=== PATIENT | female | born 1970 | race Caucasian/White ===

== ENCOUNTER 2023-05-22 20:19 | Inpatient (IN) | payer MEDICAID, OTHER ==
[~2023-05-22] VITALS: Ht 157.5 cm; Wt 95.9 kg
[2023-05-22] MEDS ORDERED: methylPREDNISolone sod succ 125mg/2ml vial IV ONE (20:50)
[2023-05-22] MEDS ORDERED: ipratropium/albuterol 3ml nebule NEB ONE (20:50)
[2023-05-22 21:23] LABS: BASOPHILS % (AUTO) 0.4 % (0-1); EOSINOPHILS % (AUTO) 0.5 % (0-6); HEMATOCRIT 43.5 % (35.0-45.0); HEMOGLOBIN 14.4 g/dl (12.0-16.0); LYMPHOCYTES # (AUTO) 1.6 X10'3 (1.1-4.8); LYMPHOCYTES % (AUTO) 22.5 % (21-51); MEAN CORPUSCULAR HEMOGLOBIN 28.6 PG (27.0-31.0); MEAN CORPUSCULAR VOLUME 86.5 FL (78-98); MEAN PLATELET VOLUME 8.7 FL (7.4-10.4); MONOCYTES % (AUTO) 14.2 % (2-12); NEUTROPHILS # (AUTO) 4.4 X10'3 (1.8-7.7); NEUTROPHILS % (AUTO) 62.4 % (42-75); PLATELET COUNT 227 X10'3 (140-440); RED BLOOD COUNT 5.03 X10'6 (4.20-5.60); RED CELL DISTRIBUTION WIDTH 13.7 % (11.5-14.5)
[2023-05-22 21:34] LABS: ALANINE AMINOTRANSFERASE 72 U/L (12-78); ALBUMIN 3.3 G/DL (3.4-5.0); ALBUMIN/GLOBULIN RATIO 0.7 (1.1-1.5); ALKALINE PHOSPHATASE 112 IU/L (46-116); ANION GAP 5 (8-16); ASPARTATE AMINO TRANSFERASE 42 U/L (10-37); BILIRUBIN,TOTAL 0.3 MG/DL (0.1-1.0); BLOOD UREA NITROGEN 10 MG/DL (7-18); BUN/CREATININE RATIO 10.2 (10.0-20.0); CALCIUM 9.2 MG/DL (8.5-10.1); CHLORIDE 101 MMOL/L (99-107); CREATININE 0.98 MG/DL (0.40-0.90); GLUCOSE 163 MG/DL (70-104); SODIUM 139 MMOL/L (135-145); TOTAL CARBON DIOXIDE 32.6 MMOL/L (24-32); TOTAL PROTEIN 7.9 G/DL (6.4-8.2); eCRCL 52 ML/MIN; eGFR 59 ML/MIN
[2023-05-22 21:41] LABS: PRO BRAIN NATRIURETIC PEPTIDE 132 PG/ML (0-125)
[2023-05-22 21:58] VITALS: PULSE 88; RESP 20; O2SAT 98
[2023-05-22 22:02] VITALS: PULSE 93; RESP 20; O2SAT 100
[2023-05-22] MEDS ORDERED: aspirin 325mg tablet PO ONE (22:15)
[2023-05-22 22:28] LABS: LIPASE 38 U/L (16-77)
[2023-05-22] MEDS ORDERED: iohexol 350MG/ML 100ml bottle IV ONE (22:38)
[2023-05-23] VITALS (8 sets, daily range): BP systolic 126–127; BP diastolic 64–83; PULSE 53–100; RESP 15–22; TEMP 98.5–99.4; O2SAT 92–98
[2023-05-23] MEDS ORDERED: CefTRIAXone 2gm/D5W 50ml BAG 50 ML IV ONE (01:20)
[2023-05-23] MEDS ORDERED: magnesium hydroxide 30ml (MOM) UD suspension PO PRN (02:30)
[2023-05-23] MEDS ORDERED: potassium Cl 40MEQ/1/2NS 520ml 520 ML IV PRN ×2 (02:30→08:25)
[2023-05-23] MEDS ORDERED: ondansetron/PF 4mg/2ml inj IV PRN (02:30)
[2023-05-23] MEDS ORDERED: magnesium 4gm in 100ml NS 100 ML IV PRN ×2 (02:30→08:25)
[2023-05-23] MEDS ORDERED: potassium Cl 20 mEq SR tablet PO PRN ×2 (02:30)
[2023-05-23] MEDS ORDERED: PERFLUTREN PROTEIN-A MICROSPHR (Optison) 0.22 MG/ML 3ML VIAL IV ONE (02:30)
[2023-05-23] MEDS ORDERED: acetaminophen 325mg tablet PO PRN (02:30)
[2023-05-23] MEDS ORDERED: magnesium 2GM in 50ml NS 50 ML IV PRN ×2 (02:30→08:25)
[2023-05-23] MEDS ORDERED: magnesium Cl slow-release 64mg tablet PO PRN (02:30)
[2023-05-23] MEDS ORDERED: mag hydrox/Alum hydrox/simeth 30ml oral suspension PO PRN (02:30)
[2023-05-23] MEDS ORDERED: methylPREDNISolone sod succ 125mg/2ml vial IV SCH (08:00)
[2023-05-23] MEDS ORDERED: K and/or MAG REPLACEMENT MC SCH (08:00)
[2023-05-23 08:22] LABS: MAGNESIUM 2.3 MG/DL (1.5-2.4)
[2023-05-23] MEDS: docusate sod 100mg capsule PO SCH ×2 (08:52→20:06)
[2023-05-23] MEDS: aspirin 81mg, enteric-coated 1 TAB TABLET.DR PO SCH (08:52)
[2023-05-23] MEDS: heparin, porcine 5000 units/ml vial SQ SCH ×2 (08:56→20:06)
[2023-05-23 10:22] LABS: ALANINE AMINOTRANSFERASE 77 U/L (12-78); ALBUMIN 3.4 G/DL (3.4-5.0); ALBUMIN/GLOBULIN RATIO 0.7 (1.1-1.5); ALKALINE PHOSPHATASE 121 IU/L (46-116); ANION GAP 14 (8-16); ASPARTATE AMINO TRANSFERASE 35 U/L (10-37); BILIRUBIN,TOTAL 0.2 MG/DL (0.1-1.0); BLOOD UREA NITROGEN 13 MG/DL (7-18); BUN/CREATININE RATIO 15.9 (10.0-20.0); CALCIUM 9.3 MG/DL (8.5-10.1); CHLORIDE 101 MMOL/L (99-107); CREATININE 0.82 MG/DL (0.40-0.90); GLUCOSE 219 MG/DL (70-104); POTASSIUM 4.6 MMOL/L (3.5-5.1); SODIUM 138 MMOL/L (135-145); TOTAL CARBON DIOXIDE 22.7 MMOL/L (24-32); TOTAL PROTEIN 8.5 G/DL (6.4-8.2); eCRCL 62 ML/MIN; eGFR 73 ML/MIN
[2023-05-23 10:48] LABS: BASOPHILS % (AUTO) 0.2 % (0-1); EOSINOPHILS % (AUTO) 0 % (0-6); HEMATOCRIT 44.3 % (35.0-45.0); HEMOGLOBIN 14.7 g/dl (12.0-16.0); LYMPHOCYTES % (AUTO) 14.2 % (21-51); MEAN CORPUSCULAR HEMOGLOBIN 28.6 PG (27.0-31.0); MEAN CORPUSCULAR HGB CONC 33.1 g/dL (33.0-36.5); MEAN CORPUSCULAR VOLUME 86.4 FL (78-98); MEAN PLATELET VOLUME 9.4 FL (7.4-10.4); MONOCYTES # (AUTO) 0.4 X10'3 (0-0.9); MONOCYTES % (AUTO) 4.9 % (2-12); NEUTROPHILS # (AUTO) 5.7 X10'3 (1.8-7.7); NEUTROPHILS % (AUTO) 80.7 % (42-75); PLATELET COUNT 259 X10'3 (140-440); RED BLOOD COUNT 5.13 X10'6 (4.20-5.60); RED CELL DISTRIBUTION WIDTH 13.9 % (11.5-14.5); WHITE BLOOD COUNT 7.1 X10'3 (4.5-11.0)
[2023-05-23] MEDS: K and/or MAG REPLACEMENT MC SCH (20:00)
[2023-05-23] MEDS: methylPREDNISolone sod succ 125mg/2ml vial IV SCH (20:06)
[2023-05-24] VITALS (12 sets, daily range): BP systolic 133–152; BP diastolic 77–91; PULSE 69–93; RESP 15–22; TEMP 97.8–98.5; O2SAT 92–98
[2023-05-24] MEDS: albuterol 2.5 MG/3 ML nebule NEB PRN ×2 (02:56→09:28)
[2023-05-24 05:58] LABS: BASOPHILS % (AUTO) 0.1 % (0-1); EOSINOPHILS % (AUTO) 0 % (0-6); HEMATOCRIT 41.9 % (35.0-45.0); LYMPHOCYTES # (AUTO) 2.3 X10'3 (1.1-4.8); LYMPHOCYTES % (AUTO) 22.3 % (21-51); MEAN CORPUSCULAR HEMOGLOBIN 28.9 PG (27.0-31.0); MEAN CORPUSCULAR HGB CONC 33.3 g/dL (33.0-36.5); MEAN CORPUSCULAR VOLUME 86.6 FL (78-98); MEAN PLATELET VOLUME 8.7 FL (7.4-10.4); MONOCYTES # (AUTO) 0.9 X10'3 (0-0.9); MONOCYTES % (AUTO) 8.8 % (2-12); NEUTROPHILS # (AUTO) 7.2 X10'3 (1.8-7.7); NEUTROPHILS % (AUTO) 68.8 % (42-75); PLATELET COUNT 268 X10'3 (140-440); RED BLOOD COUNT 4.84 X10'6 (4.20-5.60); RED CELL DISTRIBUTION WIDTH 13.8 % (11.5-14.5); WHITE BLOOD COUNT 10.4 X10'3 (4.5-11.0)
[2023-05-24 06:17] LABS: ALANINE AMINOTRANSFERASE 93 U/L (12-78); ALBUMIN 3.2 G/DL (3.4-5.0); ALBUMIN/GLOBULIN RATIO 0.7 (1.1-1.5); ALKALINE PHOSPHATASE 109 IU/L (46-116); ANION GAP 8 (8-16); ASPARTATE AMINO TRANSFERASE 40 U/L (10-37); BILIRUBIN,TOTAL 0.3 MG/DL (0.1-1.0); BLOOD UREA NITROGEN 26 MG/DL (7-18); BUN/CREATININE RATIO 33.3 (10.0-20.0); CALCIUM 9.7 MG/DL (8.5-10.1); CHLORIDE 101 MMOL/L (99-107); CREATININE 0.78 MG/DL (0.40-0.90); GLUCOSE 189 MG/DL (70-104); MAGNESIUM 2.4 MG/DL (1.5-2.4); POTASSIUM 4.8 MMOL/L (3.5-5.1); SODIUM 139 MMOL/L (135-145); TOTAL CARBON DIOXIDE 30.1 MMOL/L (24-32); eCRCL 65 ML/MIN; eGFR 77 ML/MIN
[2023-05-24 06:29] LABS: HEMOGLOBIN A1C 6.6 % (4.5-6.2)
[2023-05-24] MEDS: aspirin 81mg, enteric-coated 1 TAB TABLET.DR PO SCH (07:51)
[2023-05-24] MEDS: CefTRIAXone/D5W-Rocephin 1gm 50 ML IV SCH (07:51)
[2023-05-24] MEDS: docusate sod 100mg capsule PO SCH ×2 (07:51→19:26)
[2023-05-24] MEDS: heparin, porcine 5000 units/ml vial SQ SCH ×2 (07:51→19:26)
[2023-05-24] MEDS: methylPREDNISolone sod succ 125mg/2ml vial IV SCH (07:52)
[2023-05-24] MEDS: K and/or MAG REPLACEMENT MC SCH ×2 (08:00→19:15)
[2023-05-24] MEDS ORDERED: DEXTROSE 15 GM of carb/4 tabs (each vial/BOTTLE has 4 tablets) PO PRN ×2 (08:05)
[2023-05-24] MEDS ORDERED: glucagon, human recombinant 1mg kit SUBCUT PRN (08:05)
[2023-05-24] MEDS ORDERED: dextrose 50%-water 50ml dispensing syringe IV PRN ×2 (08:05)
[2023-05-24] MEDS ORDERED: MESSAGE TO PHARMACY PO ONE (08:05)
[2023-05-24] MEDS ORDERED: benzonatate 100mg capsule PO PRN (08:45)
[2023-05-24] MEDS: benzonatate 100mg capsule PO SCH ×2 (09:44→16:56)
[2023-05-24] MEDS: methylPREDNISolone sod succ/PF 40mg inj. IV SCH ×2 (14:50→22:14)
[2023-05-24] MEDS: insulin Lispro (HumaLOG) vial - multi-dose SQ SCH ×2 (19:31→22:13)
[2023-05-24] MEDS: insulin glargine (Lantus) pen - multi-dose SQ SCH (22:10)
[2023-05-25] VITALS (10 sets, daily range): BP systolic 133–151; BP diastolic 72–85; PULSE 71–85; RESP 16–22; TEMP 97.4–98.4; O2SAT 92–96
[2023-05-25] MEDS: benzonatate 100mg capsule PO SCH ×4 (00:16→23:03)
[2023-05-25] MEDS: CefTRIAXone/D5W-Rocephin 1gm 50 ML IV SCH (07:38)
[2023-05-25] MEDS: aspirin 81mg, enteric-coated 1 TAB TABLET.DR PO SCH (07:39)
[2023-05-25] MEDS: methylPREDNISolone sod succ/PF 40mg inj. IV SCH ×3 (07:39→21:52)
[2023-05-25] MEDS: docusate sod 100mg capsule PO SCH ×2 (07:39→19:44)
[2023-05-25] MEDS: heparin, porcine 5000 units/ml vial SQ SCH ×2 (07:40→19:44)
[2023-05-25] MEDS: K and/or MAG REPLACEMENT MC SCH ×2 (08:00→19:20)
[2023-05-25 08:10] LABS: BASOPHILS % (AUTO) 0.2 % (0-1); EOSINOPHILS % (AUTO) 0 % (0-6); HEMATOCRIT 44.4 % (35.0-45.0); HEMOGLOBIN 14.3 g/dl (12.0-16.0); LYMPHOCYTES # (AUTO) 2.6 X10'3 (1.1-4.8); LYMPHOCYTES % (AUTO) 23.4 % (21-51); MEAN CORPUSCULAR HEMOGLOBIN 28.1 PG (27.0-31.0); MEAN CORPUSCULAR HGB CONC 32.2 g/dL (33.0-36.5); MEAN CORPUSCULAR VOLUME 87.3 FL (78-98); MEAN PLATELET VOLUME 8.8 FL (7.4-10.4); MONOCYTES # (AUTO) 0.9 X10'3 (0-0.9); MONOCYTES % (AUTO) 7.9 % (2-12); NEUTROPHILS # (AUTO) 7.5 X10'3 (1.8-7.7); NEUTROPHILS % (AUTO) 68.5 % (42-75); PLATELET COUNT 273 X10'3 (140-440); RED BLOOD COUNT 5.08 X10'6 (4.20-5.60); RED CELL DISTRIBUTION WIDTH 13.8 % (11.5-14.5)
[2023-05-25 08:21] LABS: ALANINE AMINOTRANSFERASE 84 U/L (12-78); ALBUMIN 3.2 G/DL (3.4-5.0); ALBUMIN/GLOBULIN RATIO 0.6 (1.1-1.5); ALKALINE PHOSPHATASE 101 IU/L (46-116); ANION GAP 7 (8-16); ASPARTATE AMINO TRANSFERASE 32 U/L (10-37); BILIRUBIN,TOTAL 0.2 MG/DL (0.1-1.0); BLOOD UREA NITROGEN 30 MG/DL (7-18); BUN/CREATININE RATIO 34.9 (10.0-20.0); CALCIUM 9.9 MG/DL (8.5-10.1); CHLORIDE 100 MMOL/L (99-107); CREATININE 0.86 MG/DL (0.40-0.90); GLUCOSE 172 MG/DL (70-104); MAGNESIUM 2.7 MG/DL (1.5-2.4); POTASSIUM 4.6 MMOL/L (3.5-5.1); SODIUM 138 MMOL/L (135-145); TOTAL PROTEIN 8.2 G/DL (6.4-8.2); eCRCL 59 ML/MIN; eGFR 69 ML/MIN
[2023-05-25] MEDS: insulin Lispro (HumaLOG) vial - multi-dose SQ SCH ×3 (09:25→19:47)
[2023-05-25] MEDS ORDERED: FLU VACC QS2023-24(6MOS UP)/PF 60 MCG/0.5 ML SYRINGE IM ONE (09:55)
[2023-05-25] MEDS: albuterol 2.5 MG/3 ML nebule NEB PRN (11:37)
[2023-05-25] MEDS: insulin glargine (Lantus) pen - multi-dose SQ SCH (22:00)
[2023-05-26 06:00] VITALS: BP 133/67; PULSE 87; RESP 22; TEMP 97.7; O2SAT 93
[2023-05-26 06:59] VITALS: BP 133/67; PULSE 87; RESP 22; TEMP 97.7; O2SAT 93
[2023-05-26 07:19] LABS: BASOPHILS # (AUTO) 0.1 X10'3 (0-0.2); BASOPHILS % (AUTO) 0.5 % (0-1); EOSINOPHILS % (AUTO) 0 % (0-6); HEMATOCRIT 43.7 % (35.0-45.0); HEMOGLOBIN 14.5 g/dl (12.0-16.0); LYMPHOCYTES # (AUTO) 2.6 X10'3 (1.1-4.8); MEAN CORPUSCULAR HEMOGLOBIN 28.3 PG (27.0-31.0); MEAN CORPUSCULAR HGB CONC 33.2 g/dL (33.0-36.5); MEAN CORPUSCULAR VOLUME 85.2 FL (78-98); MONOCYTES % (AUTO) 8.1 % (2-12); NEUTROPHILS # (AUTO) 8.7 X10'3 (1.8-7.7); NEUTROPHILS % (AUTO) 70.4 % (42-75); PLATELET COUNT 332 X10'3 (140-440); RED BLOOD COUNT 5.13 X10'6 (4.20-5.60); RED CELL DISTRIBUTION WIDTH 13.5 % (11.5-14.5); WHITE BLOOD COUNT 12.4 X10'3 (4.5-11.0)
[2023-05-26] MEDS: methylPREDNISolone sod succ/PF 40mg inj. IV SCH ×2 (07:19→13:32)
[2023-05-26] MEDS: heparin, porcine 5000 units/ml vial SQ SCH (07:20)
[2023-05-26] MEDS: docusate sod 100mg capsule PO SCH (07:20)
[2023-05-26] MEDS: CefTRIAXone/D5W-Rocephin 1gm 50 ML IV SCH (07:20)
[2023-05-26] MEDS: benzonatate 100mg capsule PO SCH (07:20)
[2023-05-26] MEDS: aspirin 81mg, enteric-coated 1 TAB TABLET.DR PO SCH (07:21)
[2023-05-26 07:37] LABS: ALANINE AMINOTRANSFERASE 74 U/L (12-78); ALBUMIN 3.3 G/DL (3.4-5.0); ALBUMIN/GLOBULIN RATIO 0.7 (1.1-1.5); ALKALINE PHOSPHATASE 99 IU/L (46-116); ANION GAP 10 (8-16); ASPARTATE AMINO TRANSFERASE 25 U/L (10-37); BILIRUBIN,TOTAL 0.3 MG/DL (0.1-1.0); BLOOD UREA NITROGEN 29 MG/DL (7-18); BUN/CREATININE RATIO 36.7 (10.0-20.0); CALCIUM 9.7 MG/DL (8.5-10.1); CHLORIDE 98 MMOL/L (99-107); CREATININE 0.79 MG/DL (0.40-0.90); GLUCOSE 170 MG/DL (70-104); MAGNESIUM 2.6 MG/DL (1.5-2.4); POTASSIUM 4.5 MMOL/L (3.5-5.1); SODIUM 138 MMOL/L (135-145); TOTAL PROTEIN 8.2 G/DL (6.4-8.2); eCRCL 64 ML/MIN; eGFR 76 ML/MIN
[2023-05-26] MEDS: K and/or MAG REPLACEMENT MC SCH (08:00)
[2023-05-26] MEDS: albuterol 2.5 MG/3 ML nebule NEB PRN ×2 (08:17→08:18)
[2023-05-26 08:19] VITALS: PULSE 78; RESP 18; O2SAT 92
[2023-05-26 08:27] VITALS: PULSE 78; RESP 16
[2023-05-26] MEDS: insulin Lispro (HumaLOG) vial - multi-dose SQ SCH (09:36)
[2023-05-26 09:42] VITALS: RESP 20; O2SAT 94
[2023-05-26] MEDS ORDERED: BENZ200C59 PO (12:11)
[2023-05-26] MEDS ORDERED: METF-900 PO (12:11)
[2023-05-26] MEDS ORDERED: PRED20TA PO (12:11)
[2023-05-26] MEDS ORDERED: ALBU2.5V7 NEB (12:11)
[2023-05-26] MEDS ORDERED: IPRA3AMP9 IH (12:11)
[2023-05-26] MEDS ORDERED: NICO-731 TD (12:14)
[2023-05-26] MEDS ORDERED: DOXY-224 PO (12:14)
== END 2023-05-26 13:55 | disposition home or self-care (01) | DRG 140 ==
LOC: ER 20:19 → ED HOLD 05-23 02:33 → ORTHO 4S 05-23 16:31
PROVIDERS: ADMIT Internal Medicine; ATTEND Family Medicine
PROC: B32T1ZZ Computerized Tomography (CT Scan) of Left Pulmonary Artery using Low Osmolar Contrast (ICD-10-PCS; 2023-05-22)
PROC: B3201ZZ Computerized Tomography (CT Scan) of Thoracic Aorta using Low Osmolar Contrast (ICD-10-PCS; 2023-05-22)
PROC: B32S1ZZ Computerized Tomography (CT Scan) of Right Pulmonary Artery using Low Osmolar Contrast (ICD-10-PCS; 2023-05-22)
PROC: 5A09357 Assistance with Respiratory Ventilation, Less than 24 Consecutive Hours, Continuous Positive Airway Pressure (ICD-10-PCS; principal; 2023-05-24)
PROC: 5A09357 Assistance with Respiratory Ventilation, Less than 24 Consecutive Hours, Continuous Positive Airway Pressure (ICD-10-PCS; 2023-05-25)
DX: J44.1 Chronic obstructive pulmonary disease with (acute) exacerbation (principal); J96.00 Acute respiratory failure, unspecified whether with hypoxia or hypercapnia; I21.A1 Myocardial infarction type 2; B97.4 Respiratory syncytial virus as the cause of diseases classified elsewhere; E11.65 Type 2 diabetes mellitus with hyperglycemia; F15.10 Other stimulant abuse, uncomplicated; Z90.49 Acquired absence of other specified parts of digestive tract; Z98.891 History of uterine scar from previous surgery; Z86.16 Personal history of COVID-19
CPT/HCPCS: 36415; 71045; 71275; 80053; 82948; 83036; 83690; 83735; 83880; 84484; 85025; 87081; 87502; 87503; 87634; 87811; 90686; 93306; 94640; 94660; 94760; 99285; G0378; J0696; J1644; J1815; J2920; J2930; Q9967

== ENCOUNTER 2025-03-03 15:24 | Emergency (ER) | payer MEDICAID ==
[~2025-03-03] VITALS: Ht 157.5 cm; Wt 113.5 kg
[~2025-03-03 15:24] MED LIST: ALBU2.5V7 NEB; BENZ200C72 PO; DOXY-224 PO; IPRA3AMP9 IH; NICO-731 TD; PRED20TA PO
[2025-03-03 15:53] VITALS: BP 135/90; PULSE 90; RESP 16; TEMP 97.1; O2SAT 97
[2025-03-03] MEDS: proparacaine 0.5% ophthalmic drops 15ml EACHEYE ONE (16:24)
--- NOTE | 2025-03-03 16:38 | Physician Documentation ---
History of Present Illness ~ Chief Complaint: Blurred Vision Stated Complaint: VISION COMPLICATIONS Time Seen by MD: 16:09 Primary Medical Doctor: NONE HPI 58-YEAR-OLD FEMALE PRESENTS VIA URGENT CARE REFERRAL FOR RESIDUAL RIGHT EYE COMPLAINT SECONDARY TO A RECENT HAIR DYE EXPOSURE WHICH LED TO A MODERATE TO SEVERE ALLERGIC REACTION. MOST OF HER RASH AND SWELLING HAS RESOLVED HOWEVER SHE HAS ONGOING BLURRED VISION WITH AN INJECTED SCLERA AND A NONREACTIVE RIGHT PUPIL WITH SOME CLOUDY HAZE TO THE PUPIL. STATES SHE HAS HAD INTERMITTENT HEADACHES OF THE LAST TWO WEEKS SINCE HER ALLERGIC REACTION STARTED. Day of Onset: Mar 03, 2025 Medication Reconciliation Allergies: Coded Allergies: No Known Allergies (Unverified , 12/19/08) Scheduled Acetazolamide (Acetazolamide), 1 CAP PO BID Doxycycline Hyclate (Doxycycline Hyclate), 1 CAP PO Q12H Nicotine (Nicotine Patch), 1 PATCH TD DAILY Prednisone* (Prednisone*), 3 TAB PO DAILY Scheduled PRN Albuterol Sulfate (Albuterol Sulfate), 2.5 MG NEB Q4H PRN for SOB or wheezing Benzonatate (Benzonatate), 1 CAP PO Q8H PRN for cough Ipratropium/Albuterol Sulfate (IPRAT-ALBUT 0.5-3(2.5) MG/3 ML nebule), 3 ML IH Q6H PRN for SOB or wheezing Past Medical History Past Medical History: No Pertinent History Past Surgical History: cholecystectomy, Alcohol Use: None Drug Use: none Review of Systems All Other Systems at this time: Reviewed and Negative ROS As stated above in the HPI, otherwise all systems are reviewed and negative. Physical Exam Vital Signs: Temperature: 97.1, Source: Temporal, Heart Rate: 90, Respiratory Rate: 16, BP: 135/90, Pulse Oximetry: 97, Weight: 113.500 Oxygen Flow Rate: 0 Physical Exam General: Alert, no apparent distress. HEENT: PERRL, EOMI,-. NONREACTIVE RIGHT PUPIL WITH CLOUDY HAZE, SCLERA INJECTED Respiratory: Lungs clear, no respiratory distress. Cardiovascular: Regular rate and rhythm, no murmurs. Gastrointestinal: Soft, nontender, nondistended. Bowels sounds present. Neurologic: Oriented x4. Psychiatric: Normal mood and affect. Skin: Normal color, warm and dry. No edema, no ecchymosis. Procedures Procedures RELATED THAT IS PHENOMENA TEST WITH THE RIGHT AFFECTED EYE COMING BACK WITH 53 MM HG AND THE UNAFFECTED EYE COMING BACK AT 32 MM HG Eye Procedure Alcaine Drops Administered: Yes Tolerated Procedure Well?: yes, no complications Progress Progress Note AFTER TO THE INITIAL MEDICATIONS INTRA-OCULAR PRESSURE OF THE AFFECTED EYE ANNIE UPD 52 MM HG ADMINISTERED PILOCARPINE @ 1800 @1810 47MMHG ADMINISTERED TWO MORE DROPS OF PILOCARPINE @1814 1830 43 MMHG two more drops of pilocarpine 1845 43mmhg two mor dropsof pilocarpine 1905 38mmg Results/Orders Reviewed/noted all lab results: Yes Results/Orders Orders - JUANITA VILLANUEVA RECEIVING CHECKER Dorzolamide/Timolol Ophth Drop (Cosopt E (03/03/25 20:00) Visual Acuity (03/03/25 ) Completed Orders - JUANITA VILLANUEVA RECEIVING CHECKER Proparacaine Ophth Solution (Alcaine Oph (03/03/25 16:25) Pilocarpine Ophthalmic Drops (Pilocarpin (03/03/25 17:35) Acetazolamide Tablet (Diamox Tablet) (03/03/25 18:10) Medications Received in ER Medications (Trade) Dose Ordered Sig/Ghassan Route PRN Reason Start Time Stop Time Status Last Admin Dose Admin (Diamox tablet) 500 mg ONCE ONCE PO 03/03/25 18:10 03/03/25 18:11 DC 03/03/25 19:11 500 MG Vital Signs 03/03/25 15:53 Temp 97.1 Pulse 90 Resp 16 B/P (MAP) 135/90 Pulse Ox 97 O2 Flow Rate 0 Medical Decision Making Additional information obtaine: N/A Findings THIS PATIENT DID NOT MEET CRITERIA FOR STROKE SYMPTOMS SHE HAD NO FOCAL DEFICITS. SHE DOES HAVE A HEADACHE BLURRED VISION AND A FIXED MODERATLEY DILATED PUPIL. PAIN ABNORMAL READINGS WITH THE TONOMETER INDICATING THE NEED FOR OPHTHALMOLOGIC CONSULTATION SPEAKING WITH DR. AVILA HE ADVISED TO GIVE THE PATIENT 1% PILOCARPINE EVERY 5-10 MINUTES UNTIL ENTERO OCULAR PRESSURE GOES DOWN AFTER PRESSURE COMES DOWN PRESCRIBED DIAMOX [address] Warner worked closely with me throughout the care of this patient Ear Diff. Dx: Considerations: Unlikely: Abrasion, Cerumen impaction, Foreign body, Otitis externa, Barotrauma, Otitis media, Perforation, Referred pain- dental, Referred pain-pharyngitis, Referred pain-sinusitis, Referred pain-TMJ syn., Tympanic Membrane Injury, Other Eye Diff. Dx: Considerations: Include: [place]az[place], Conjuctivits-allergic, Conjuctivitis-bacterial, Conjuctivits-chlamydial, Conjuctivitis-viral, Corneal abrasion, Corneal laceration, Corneal ulceration, Foreign body-conjuctiva, Foreign body-corneal, Foreign body-intraocular, Foreign body-lid, Glaucoma, Globe rupture, Hordeolum, Iritis, Orbital cellulitis, Periobital cellulitis, Retinal artery occulsion, Retinal vein occlusion, Rust ring, Subconjunctival hem, Ultraviolet keratitis, Uveitis, Vitreous hemorrhage, Other Nose Diff. Dx: Considerations: Unlikely: Abrasion, Anterior nasal bleed, Avulsion, Contusion, Coagulopathy, Fracture-nasal bone, Fracture-septum, Hypertension, Laceration, Other, Posterior nasal bleed, Retained foreign body, Septal hematoma Tooth Diff. Dx: Considerations: Unlikely: Alveolar fracture, Aveolar osteitis, ANUG, Facial cellulitis, Periapical abscess, Periodontal abscess, Post- extraction bleeding, Pulpitis, Trigeminal neuralgia, Tooth-avulsion, Tooth- eruption, Tooth-fracture, Tooth-subluxation, Other Throat Diff Dx: Considerations: Unlikely: AIDS, Epiglottitis, Esophageal candidiasis, Hand foot mouth disease, Herpangina, Herpetic stomatitis, Herpes simplex, Infection mononucleosis, Immunodeficiency, Dixon's angina, Peritonsillar abscess, Peritonsillar cellulitis, Pharyngitis-diphtheria, Pharyngitis-strepococcal, Pharyngitis-viral, Thrush, URI, Other Departure Disposition: 01 HOME / SELF CARE / HOMELESS Impression: Primary Impression: Acute angle-closure glaucoma of right eye Condition: Stable Discharge Instructions: Blurred Vision, Adult Additional Instructions: Be sure to follow up with Dr. Avila tomorrow he will be expecting you at his office Referrals: NO PRIMARY CARE PROVIDER (PCP) RODO AVILA MD Prescriptions Acetazolamide (Acetazolamide) 500 Mg Capsule.er 1 CAP PO BID for glaucoma for 3 Days, #1 CAP Prov: JUANITA VILLANUEVA RECEIVING CHECKER 03/03/25 Education Educated: Patient Educated regarding: diagnosis Signature Scribe Signature: G Attestation: Scribed for Juanita Villanueva [employer] Teacher by Juanita Lennon NP . 03/03/25 18:00 JUANITA VILLANUEVA NP Mar 03, 2025 16:38
[2025-03-03] MEDS ORDERED: ACET500C62 PO (18:57)
[2025-03-03] MEDS: dorzolamide/timolol (Cosopt) ophthalmic drops 10ml bottle RIGHTEYE SCH (19:15)
[2025-03-03] MEDS: pilocarpine 2% ophthalmic drops 15ml RIGHTEYE ONE (19:15)
== END 2025-03-03 19:16 | disposition home or self-care (01) ==
LOC: ER 15:25
DX: H40.211 Acute angle-closure glaucoma, right eye (principal); Z90.49 Acquired absence of other specified parts of digestive tract; Z79.899 Other long term (current) drug therapy; Z98.890 Other specified postprocedural states
CPT/HCPCS: 99283